=== PATIENT | male | born 1990 | race Two or more races ===

== ENCOUNTER 2023-03-22 11:15 | Emergency (ER) | payer BC ==
[~2023-03-22] VITALS: Ht 188 cm; Wt 109.0 kg
[2023-03-22 11:52] VITALS: BP 129/90; PULSE 117; RESP 18; TEMP 97.9; O2SAT 99
[2023-03-22] MEDS ORDERED: LIDOCAINE 1% HCL (LOCAL ANESTH.) INJ 20ML MDV IJ ONE (12:00)
[2023-03-22] MEDS ORDERED: TETANUS-DIPTH-ACEL PERTUSSIS 0.5ML SYR Tdap IM ONE (12:30)
== END 2023-03-22 12:50 | disposition home or self-care (01) ==
LOC: ER 11:15
DX: S81.011A Laceration without foreign body, right knee, initial encounter (principal); W18.41XA Slipping, tripping and stumbling without falling due to stepping on object, initial encounter; Y93.89 Activity, other specified; Y92.89 Other specified places as the place of occurrence of the external cause; Y99.8 Other external cause status
CPT/HCPCS: 12002; 73562; 90471; 90715; 99283; J2001